=== PATIENT | female | born 1960 | race Caucasian/White ===

== ENCOUNTER 2017-12-22 08:03 | Outpatient (CLI) | payer OTHER | END 2017-12-22 08:04 | disposition home or self-care (01) | LOC: BICMAMMO 08:03 | PROVIDERS: ATTEND Family Medicine | DX: Z12.31 Encounter for screening mammogram for malignant neoplasm of breast (principal); Z80.3 Family history of malignant neoplasm of breast | CPT/HCPCS: 77063; 77067 ==

== ENCOUNTER 2018-10-25 07:16 | Outpatient (CLI) | payer BC ==
--- NOTE | 2018-10-25 09:04 | ULT ---
ABDOMINAL ULTRASOUND: HISTORY: Followup of fatty liver. FINDINGS: Rela-time imaging of the upper abdomen was performed. This shows a normal-appearing gallbladder. Th e common duct is in the 4 mm range. The visualized liver parenchyma appears to be of fairly normal e chogenicity. The liver measures 15 cm in length. The spleen measures 9.5 cm. The right and left kidneys are normal in size and not obstructed. The pancreas, abdominal aorta, and IVC regions are unremarkable. IMPRESSION: Unremarkable abdomen ultrasound. POS: [facility]
== END 2018-10-25 07:17 | disposition home or self-care (01) ==
LOC: BICULT 07:16
PROVIDERS: ATTEND Family Medicine
DX: K76.0 Fatty (change of) liver, not elsewhere classified (principal)
CPT/HCPCS: 76700

== ENCOUNTER 2018-12-22 08:12 | Outpatient (CLI) | payer BC ==
--- NOTE | 2018-12-22 08:35 | MMO ---
Bilateral MAMMO Bilat Screen [facility]. CLINICAL HISTORY: Patient is 58 years old and is seen for screening. The patient has no family history of breast cancer. The patient has no personal history of cancer. VIEWS: The views performed were: bilateral craniocaudal with tomosynthesis and bilateral mediolateral oblique with tomosynthesis. FILMS COMPARED: The present examination has been compared to prior imaging studies performed at [facility] on 12/11/2014, 12/14/2015, 12/18/2016 and 12/22/2017. MAMMOGRAM FINDINGS: There are scattered fibroglandular densities. There is a stable round mass with circumscribed margins and associated coarse popcorn-like calcifications seen in the left breast. There are no suspicious masses, suspicious calcifications, or new areas of architectural distortion. IMPRESSION: THERE IS NO MAMMOGRAPHIC EVIDENCE OF MALIGNANCY. A ROUTINE FOLLOW-UP MAMMOGRAM IN 1 YEAR IS RECOMMENDED. THE RESULTS OF THIS EXAM WERE SENT TO THE PATIENT. ACR BI-RADS Category 2 - Benign finding MAMMOGRAPHY NOTE: 1. A negative mammogram report should not delay a biopsy if a dominant of clinically suspicious mass is present. 2. Approximately 10% to 15% of breast cancers are not detected by mammography. 3. Adenosis and dense breasts may obscure an underlying neoplasm.
== END 2018-12-22 08:13 | disposition home or self-care (01) ==
LOC: BICMAMMO 08:12
PROVIDERS: ATTEND Family Medicine
DX: Z12.31 Encounter for screening mammogram for malignant neoplasm of breast (principal)
CPT/HCPCS: 77063; 77067

== ENCOUNTER 2019-05-19 07:23 | Outpatient (CLI) | payer BC ==
--- NOTE | 2019-05-19 08:06 | ULT ---
BILATERAL RENAL ULTRASOUND: Date: 05/19/19 HISTORY: Pain. Hematuria. COMPARISON: None. FINDINGS: Right Kidney: Limited evaluation of the upper pole cortex. No obvious cortical masses or hydronephro sis. Right kidney measures 3.9 x 3.4 x 9.4 cm. Left Kidney: Normal cortical echotexture. No hydronephrosis. Left kidney measures 5.2 x 9.7 x 5.4 cm . Patient recently voided, limiting evaluation of the urinary bladder. IMPRESSION: No hydronephrosis. POS: [facility]
--- NOTE | 2019-05-19 08:56 | ULT ---
ULTRASOUND ABDOMEN: HISTORY: Abdominal pain FINDINGS: The spleen, gallbladder, pancreas, kidneys and visualized portions of the aorta and IVC appear normal . The common duct measures 6mm in diameter. No free fluid is seen. The liver demonstrates increased echogenicity consistent with fatty infiltration. IMPRESSION: Fatty liver
== END 2019-05-19 07:24 | disposition home or self-care (01) ==
LOC: BICULT 07:23
PROVIDERS: ATTEND Family Medicine
DX: R10.84 Generalized abdominal pain (principal); R31.29 Other microscopic hematuria; K76.0 Fatty (change of) liver, not elsewhere classified
CPT/HCPCS: 76770; 93975

== ENCOUNTER 2019-12-26 | Outpatient (CLI) | payer BC | END 2019-12-26 07:53 | disposition home or self-care (01) | DX: Z12.31 Encounter for screening mammogram for malignant neoplasm of breast (principal) ==

== ENCOUNTER 2020-12-27 08:08 | Outpatient (CLI) | payer BC | END 2020-12-27 08:09 | disposition home or self-care (01) | LOC: BICMAMMO 08:08 | PROVIDERS: ATTEND Family Medicine | DX: Z12.31 Encounter for screening mammogram for malignant neoplasm of breast (principal) | CPT/HCPCS: 77063; 77067 ==

== ENCOUNTER 2021-07-03 07:08 | Outpatient (CLI) | payer BC | END 2021-07-03 07:09 | disposition home or self-care (01) | LOC: BICULT 07:08 | PROVIDERS: ATTEND Family Medicine | DX: Z13.820 Encounter for screening for osteoporosis (principal); K76.0 Fatty (change of) liver, not elsewhere classified; R31.29 Other microscopic hematuria; M81.0 Age-related osteoporosis without current pathological fracture; M85.851 Other specified disorders of bone density and structure, right thigh; M85.852 Other specified disorders of bone density and structure, left thigh | CPT/HCPCS: 76700; 76770; 77080 ==

== ENCOUNTER 2022-01-09 07:39 | Outpatient (CLI) | payer BC | END 2022-01-09 07:40 | disposition home or self-care (01) | LOC: BICMAMMO 07:39 | PROVIDERS: ATTEND Family Medicine | DX: Z12.31 Encounter for screening mammogram for malignant neoplasm of breast (principal) | CPT/HCPCS: 77063; 77067 ==

== ENCOUNTER 2023-01-12 07:07 | Outpatient (CLI) | payer BC | END 2023-01-12 07:08 | disposition home or self-care (01) | LOC: BICULT 07:07 | PROVIDERS: ATTEND Family Medicine | DX: Z12.31 Encounter for screening mammogram for malignant neoplasm of breast (principal); N63.20 Unspecified lump in the left breast, unspecified quadrant; R16.0 Hepatomegaly, not elsewhere classified; K76.0 Fatty (change of) liver, not elsewhere classified | CPT/HCPCS: 76700; 77063; 77067 ==

== ENCOUNTER 2023-01-13 07:48 | Outpatient (CLI) | payer BC | END 2023-01-13 07:49 | disposition home or self-care (01) | LOC: BICMAMMO 07:48 | PROVIDERS: ATTEND Family Medicine | DX: R92.8 Other abnormal and inconclusive findings on diagnostic imaging of breast (principal); N64.89 Other specified disorders of breast | CPT/HCPCS: G0279 ==

== ENCOUNTER 2023-03-20 11:29 | Day surgery (SDC) | payer OTHER ==
[2023-03-18 13:58] VITALS: BMI 24.2
[2023-03-20] MEDS ORDERED: Acetaminophen 500 MG TAB ONE (12:05)
[2023-03-20] MEDS ORDERED: Ketorolac Tromethamine 30 MG/ML VIAL ONE (12:05)
[2023-03-20] MEDS ORDERED: Midazolam HCl 2 mg/2 ml Vial ONE ×2 (13:36→13:47)
[2023-03-20] MEDS ORDERED: fentaNYL 50 mcg/mL 1 mL Vial ONE (13:36)
[2023-03-20] MEDS ORDERED: EPINEPHrine 1 MG/ML AMP ONE (13:40)
[2023-03-20] MEDS ORDERED: Lidocaine 1% (PF) 30 ML VIAL ONE (13:40)
[2023-03-20] MEDS ORDERED: Bupivacaine 0.25% HCL 30 ML VIAL ONE (13:40)
[2023-03-20] MEDS ORDERED: CEFAZOLIN 2 GM VIAL ONE (13:45)
[2023-03-20] MEDS ORDERED: Sodium Chloride 0.9% 100 ML ONE (13:45)
[2023-03-20] MEDS ORDERED: Famotidine/PF 20 mg/2ml Vial ONE (13:47)
[2023-03-20] MEDS ORDERED: Ondansetron PF 4 MG/2 ML Vial ONE (13:55)
[2023-03-20] MEDS ORDERED: PHENYLEPHRINE-NS 100 MCG/ML 10 ML SYRINGE ONE (13:55)
[2023-03-20] MEDS ORDERED: Lidocaine 1% PF 5 ML VIAL ONE (13:55)
[2023-03-20] MEDS ORDERED: ePHEDrine Sulfate 50 MG/10 ML VIAL ONE (13:55)
[2023-03-20] MEDS ORDERED: Dexamethasone 20 MG/5 ML VIAL ONE (13:55)
[2023-03-20] MEDS ORDERED: PROPOFOL 200 MG/20 ML VIAL ONE (13:55)
== END 2023-03-20 15:40 | disposition home or self-care (01) ==
LOC: SDC 11:29
PROVIDERS: ATTEND Specialist
PROC: 0JH63WZ Insertion of Totally Implantable Vascular Access Device into Chest Subcutaneous Tissue and Fascia, Percutaneous Approach (ICD-10-PCS; principal; 2023-03-20)
DX: C50.911 Malignant neoplasm of unspecified site of right female breast (principal); E78.5 Hyperlipidemia, unspecified; K21.9 Gastro-esophageal reflux disease without esophagitis; H40.1190 Primary open-angle glaucoma, unspecified eye, stage unspecified; Z79.899 Other long term (current) drug therapy
CPT/HCPCS: 71045; C1788; J0171; J1100; J1642; J1885; J2001; J2250; J2405; J2704; J3010; J3490; S0020; S0028

== ENCOUNTER 2023-09-01 08:34 | Outpatient (CLI) | payer OTHER | END 2023-09-01 08:35 | disposition home or self-care (01) | LOC: BICMAMMO 08:34 | PROVIDERS: ATTEND Internal Medicine | DX: M81.0 Age-related osteoporosis without current pathological fracture (principal); C50.311 Malignant neoplasm of lower-inner quadrant of right female breast; T38.6X5A Adverse effect of antigonadotrophins, antiestrogens, antiandrogens, not elsewhere classified, initial encounter; M85.852 Other specified disorders of bone density and structure, left thigh | CPT/HCPCS: 77080 ==